=== PATIENT | male | born 1980 | race Caucasian/White ===

== ENCOUNTER 2018-09-13 12:45 | Outpatient (CLI) | payer BC | END 2018-09-13 23:59 | disposition home or self-care (01) | LOC: CARD DIAG 12:45 | PROVIDERS: ATTEND Internal Medicine Hematology & Oncology | DX: I08.0 Rheumatic disorders of both mitral and aortic valves (principal); I11.9 Hypertensive heart disease without heart failure; C83.91 Non-follicular (diffuse) lymphoma, unspecified, lymph nodes of head, face, and neck | CPT/HCPCS: 93306 ==